=== PATIENT | female | born 1955 | race Caucasian/White ===

== ENCOUNTER 2017-04-13 18:14 | Inpatient (IN) | payer OTHER ==
--- NOTE | ~2017-04-13 | DS ---
Discharge Summary [facility] [address] [place]. [address] NAME: ORESTES MARTIN : 59 STATUS : DIS IN PAT#: [id number] AGE: 61 ADM/REG DATE : 04/13/17 MR#: [id number] REPORT SERV DATE: 04/17/17 DICTATED BY: CIERRA PEARSON DATE: 04/16/17 REPORT STATUS : Draft TRANSCRIBED BY: MODL DATE: 04/16/17 ADMISSION DATE: 04/13/2017 DISCHARGE DATE: 04/16/2017 FINAL HOSPITAL DIAGNOSES: 1. Chest pain, weakness and presyncope, resolved. Negative CV evaluation. 2. Acute kidney injury, resolved with holding her nephrotoxic agents. 3. Diabetes mellitus. 4. Leukocytosis. 5. Hypertension. CONSULTATIONS: Cardiology [facility]. PROCEDURES: 1. Echocardiogram done on 04/14, showing normal LV size and systolic function. EF of 55%. No wall motion abnormalities. Mild concentric LVH. Mild diastolic dysfunction. Mild left atrial enlargement. Aortic valve sclerosis without stenosis. When compared to 02/2016, no significant change noted. 2. Nuclear stress test done on 04/14, showing EF of 53%. No ischemia. Low-risk vasodilator stress test. CURRENT PHYSICAL FINDINGS AND HISTORY OF PRESENT ILLNESS: Please see initial dictated H and P by Dr. Ramirez. In brief, the patient is a 61-year-old female with above medical history, who was admitted with complaints of chest pain, presyncope, and weakness. Vital signs at the time of admission, BP was 134/69, the patient was afebrile on presentation and has been during her hospital stay, heart rates have been in the 60s to 70s. LABORATORY WORK: Initial blood gas showed a pH of 7.44. Carboxyhemoglobin was 6.9. Procalcitonin was less than 0.05. Initial sodium was slightly low at 132. Initial creatinine was 1.45 and subsequent creatinines were 1.1, 1.72, and 0.69. Initial glucose was 332. TSH was 0.4. Troponin was less than 0.02 x3. LFTs were normal. A1c was 11.1. BNP was 44.6. Initial white count was 17.1, subsequent numbers have been steadily trending down, last on 04/16 was 11.6. Urinalysis was unremarkable. Chest x-rays showed stable borderline cardiomegaly, otherwise negative. HOSPITAL COURSE: The patient was admitted for further evaluation and treatment. Nephrotoxic agents were held. Otherwise, her medications were reviewed and ordered appropriately. IV fluids were given. Sliding scale insulin coverage, serial troponins, Cardiology consult, and aspirin were initiated. The patient was seen by Cardiology the following day. Her stress test and echocardiogram were pending. Later that afternoon, she had a panic attack, which resolved with clonidine. On re-evaluation on the morning of 04/16, Cardiology signed off and felt she was stable from a cardiovascular standpoint. Her other medical problems including her asthma were back to baseline on her O2. Her blood sugars were reasonably well controlled. Her renal insufficiency had resolved. Her vitals were stable, and she was felt stable for discharge with outpatient followup. Discharge Summary [address] [place]. [address] NAME: ORESTES MARTIN : 59 STATUS : DIS IN PAT#: [id number] AGE: 61 ADM/REG DATE : 04/13/17 MR#: [id number] REPORT SERV DATE: 04/17/17 DICTATED BY: CIERRA PEARSON DATE: 04/16/17 REPORT STATUS : Draft TRANSCRIBED BY: MITA DATE: 04/16/17 MEDICATIONS: Norvasc 5 one per day; aspirin 81 one per day; Lipitor 40; B12, 1000 q.14 days and 500 daily; Flexeril 10 t.i.d.; vitamin D 5000; Prozac 20; Neurontin 300; Toujeo 35 at bedtime; Apresoline 50 b.i.d.; Humalog 50/50, 35 units in the morning; hydrochlorothiazide 25; Percocet 10/325 q.i.d.; Breo Ellipta, Incruse Ellipta, and ProAir p.r.n. At this point, she will not restart her Mobic or Zestril. She will follow up with her PCP in one to two weeks for discussion on restarting her Mobic and Zestril and following her renal function if necessary. At the current time, her blood pressure is fine. She is still attempting to get into pain management for prescribing of her anxiolytics and controlled substances. No prescriptions were given on her discharge today. DICTATED BY: Cierra Pearson M.D. [facility]/MODL Cierra Pearson M.D. / [id number] CC: Neal Snell DO
--- NOTE | ~2017-04-13 | CN ---
Consultation Report [facility] [address] [place]. [address] NAME: ORESTES MARTIN : 59 STATUS : ADM Ingrid PAT#: [id number] AGE: 61 ADM/REG DATE : 04/13/17 MR#: [id number] REPORT SERV DATE: 04/14/17 DICTATED BY: TA GILES DATE: 04/14/17 REPORT STATUS : Draft TRANSCRIBED BY: MODL DATE: 04/14/17 DATE OF CONSULTATION: REASON FOR CONSULTATION: Mrs. Orestes Martin is a 61-year-old female, who enters through the emergency room with chest discomfort. CVD PHYSICIAN: Ta Giles M.D. PRIMARY CARE PHYSICIAN: None. HISTORY OF PRESENT ILLNESS: Mrs. Orestes Martin has been under great deal of stress at home and developed chest discomfort. It is similar to the discomfort she has had in the past. She has also been feeling weak and somewhat dizzy. Previous workups have been included a cardiac catheterization, 04/04, which showed diffuse nonobstructive coronary artery disease. REVIEW OF SYSTEMS: Positive for recurrent chest discomfort, usually associated with lot of mental stress. No significant exertional component is found. PAST MEDICAL HISTORY: 1. Coronary artery disease, diffuse, nonobstructive on cardiac catheterization, 04/04. 2. COPD, on home O2, secondary to cigarette smoking. 3. Diabetes mellitus type 1, insulin dependent. 4. Long history of hypertension with normal ejection fraction and no LVH on echocardiogram, 03/04. 5. Hyperlipidemia, on atorvastatin. 6. Irritable bowel syndrome. 7. History of TIA with negative echocardiogram. SOCIAL HISTORY: She continues to smoke. She does not drink. FAMILY HISTORY: Significant for her maternal grandfather with coronary artery disease. Paternal uncle with myocardial infarction. Mother with coronary artery disease. PHYSICAL EXAMINATION: VITAL SIGNS: Blood pressure is 113/58, pulse 62. She is afebrile. GENERAL: Resting comfortably. Nutritional status appears adequate. EYES: PERRLA. LUNGS: No labored use of accessory muscles. Without rales or wheezes. COR: PMI is not displaced. No thrills or heaves. NL S1 and S2. No S3, murmur, click, or rub. PULSES: Carotids without bruits. ABD: +BS, nontender. EXT: No cyanosis, clubbing, or edema. SKIN: No petechiae. Consultation Report [facility] [address] [place]. [address] NAME: ORESTES MARTIN : 59 STATUS : ADM Ingrid PAT#: [id number] AGE: 61 ADM/REG DATE : 04/13/17 MR#: [id number] REPORT SERV DATE: 04/14/17 DICTATED BY: TA GILES DATE: 04/14/17 REPORT STATUS : Draft TRANSCRIBED BY: MITA DATE: 04/14/17 NEURO: Alert and oriented. Does not appear anxious or depressed. LABORATORY EVALUATION: Admission creatinine was 1.45 and this has improved to 1.11. White count was also elevated at 17 and this has improved to 15. Troponins remain negative. BNP is less than 100. ASSESSMENT: At this time, echocardiogram and stress test are pending. Somewhat atypical presentation for anginal chest pain. We will continue her on the vasodilator as vasospasm is a significant consideration. PATIENCE/MITA Ta Giles M.D. / [id number] CC: Storm Garcia MD
--- NOTE | ~2017-04-13 | HP ---
History And Physical [facility] [address] [place]. [address] NAME: ORESTES MARTIN : 59 STATUS : ADM Ingrid PAT#: [id number] AGE: 61 ADM/REG DATE : 04/13/17 MR#: [id number] REPORT SERV DATE: 04/14/17 DICTATED BY: GLENROY FRANCOIS DATE: 04/13/17 REPORT STATUS : Draft TRANSCRIBED BY: MODL DATE: 04/13/17 DATE OF ADMISSION: 04/13/2017 POINT OF ENTRY: [facility] Emergency Department. CHIEF COMPLAINT: Chest pain, weakness, and presyncope. HISTORY OF PRESENT ILLNESS: Ms. Martin is a 61-year-old female with history of COPD, hypertension, hyperlipidemia, chronic pain on chronic narcotics, and nonobstructive coronary artery disease, who presents to the emergency department today with reports of sharp, stabby epigastric chest pain as well as weakness and feeling as if she is going to pass out. The patient states that today every time she exerted herself, she felt that she was going to pass out. She felt weak, lightheaded, and things became very bright in her vision. In that setting, she also developed some sharp, stabby chest pain located in the lower substernal and upper epigastric region. She states that radiated toward her back, but denied any radiation to the left arm, neck, or jaw. The patient denies any recent fevers, night sweats, chills, shortness of breath, cough, sputum production, abdominal pain, nausea, vomiting, diarrhea, constipation, dysuria, lower extremity edema, melena, hematochezia, or hemoptysis. Initial evaluation in the emergency department notable for EKG and initial set of cardiac enzymes that was nonischemic. Labs notable for evidence of dehydration. A BUN of 30, creatinine 1.45, the glucose of 332 with a white count of 17,100. Given her elevated white count, she was not a CPOU candidate therefore, she was admitted to the Hospitalist Service. Of note, the patient was admitted to the Hospitalist Service on 03/2016 for chest pain complaints and had a mildly abnormal stress test and then underwent cardiac catheterization, which showed diffuse nonobstructive coronary artery disease. Medical management was recommended at that time. COMPREHENSIVE REVIEW OF SYSTEM: Otherwise negative unless listed in history of present illness. PREVIOUS MEDICAL HISTORY: 1. COPD on 2 L nasal cannula. 2. Chronic hypoxic respiratory failure. 3. Hypertension. 4. Hyperlipidemia. 5. Chronic pain syndrome. 6. Nonobstructive coronary artery disease. 7. Chronic leukocytosis, baseline white count approximately 11 to 14. 8. Uncontrolled insulin-dependent DM, type 2. Hemoglobin A1c of 12.4. 9. IBS. 10.History of prior cerebrovascular accident. History And Physical [address] [address] NAME: ORESTES MARTIN : 59 STATUS : ADM Ingrid PAT#: [id number] AGE: 61 ADM/REG DATE : 04/13/17 MR#: [id number] REPORT SERV DATE: 04/14/17 DICTATED BY: GLENROY FRANCOIS DATE: 04/13/17 REPORT STATUS : Draft TRANSCRIBED BY: MITA DATE: 04/13/17 11.Anxiety. 12.Depression. SURGICAL HISTORY: 1. Appendectomy. 2. Cholecystectomy. 3. Abdominal hysterectomy. 4. Knee surgery. 5. Left foot surgery. ALLERGIES: BANANAS. HOME MEDICATIONS: 1. Albuterol two puffs inhalation b.i.d. p.r.n. 2. Norvasc 5 mg daily. 3. Atorvastatin 40 mg at bedtime. 4. Vitamin D 5000 units daily. 5. Vitamin B12 at 1000 mcg every two weeks. 6. Vitamin B12 at 100 mcg daily. 7. Flexeril 10 mg t.i.d. 8. Prozac 20 mg daily. 9. Breo Ellipta one puff inhalation daily. 10.Gabapentin 300 mg t.i.d. 11.Hydralazine 50 mg b.i.d. 12.Hydrochlorothiazide 25 mg daily. 13.Toujeo 35 units at bedtime. 14.Lisinopril 40 mg daily. 15.Meloxicam 15 mg daily. 16.Percocet 10-325 one tablet q.i.d. p.r.n. 17.Incruse Ellipta one puff inhalation at bedtime. 18.Humalog 50/50 at 35 units q.a.m. SOCIAL HISTORY: She continues to smoke about a pack per day. Denies any alcohol or illicits. FAMILY MEDICAL HISTORY: Mother and father both have coronary artery disease, and family history of stroke. LABS AND IMAGIN. White count of 17.1, hemoglobin 12.7, hematocrit 37.5, platelets 291, INR 1.0. 2. Sodium is 132, potassium 4.2, chloride 95, carbon dioxide 29, BUN 30, creatinine 1.45, glucose is 332, calcium is 9.8, magnesium 2.0. 3. Troponin less than 0.02. BNP is 44. 4. ABG: PH is 7.44, pCO2 is 40, pO2 84, bicarb is 26, saturating 96% on room air. 5. EKG per my preview shows normal sinus rhythm. No evidence of any acute ischemia or infarction. 6. Chest x-ray per my review shows no acute cardiopulmonary abnormality. History And Physical [address] [address] NAME: ORESTES MARTIN : 59 STATUS : ADM Ingrid PAT#: [id number] AGE: 61 ADM/REG DATE : 04/13/17 MR#: [id number] REPORT SERV DATE: 04/14/17 DICTATED BY: GLENROY FRANCOIS DATE: 04/13/17 REPORT STATUS : Draft TRANSCRIBED BY: MITA DATE: 04/13/17 PHYSICAL EXAMINATION: VITAL SIGNS: Temperature is 97.0 degree Fahrenheit, pulse is 71, respirations 15, saturating 94% on room air, blood pressure 134/69. GENERAL: The patient is awake, alert, in no acute distress. Resting comfortably. She is a morbidly obese, female. HEENT: Atraumatic and normocephalic. Moist mucous membranes. Pupils are equal, round, reactive to light and accommodation. Extraocular eye movements intact. No scleral icterus. NECK: No jugular venous distention. No carotid bruits. CARDIAC: Regular rate and rhythm. No murmurs, rubs, or gallops. Normal S1, S2. LUNGS: Clear to auscultation bilaterally. No wheezes, rhonchi, or crackles. ABDOMEN: Obese, soft, nontender, nondistended. Good bowel sounds. No rebound, guarding, or rigidity. EXTREMITIES: Warm and well perfused. No cyanosis, clubbing, or edema. SKIN: Warm and dry. PSYCH: Affect appropriate. NEURO: Alert and oriented x3. Cranial nerves 2 through 12 grossly intact. Speech is normal. Gait not assessed. ASSESSMENT: Ms. Martin is a 61-year-old female who presents with feelings of weakness, lightheadedness, presyncope as well as chest pain. Also incidentally, she was found to have evidence of leukocytosis, hyperglycemia, and acute kidney injury. PROBLEM LIST: 1. Chest pain. 2. Presyncope and weakness. 3. Acute kidney injury. 4. Leukocytosis. 5. Insulin-dependent diabetes mellitus, type 2 with hyperglycemia. 6. History of nonobstructive coronary artery disease. 7. Chronic obstructive pulmonary disease, on home oxygen. PLAN: 1. Chest pain. Given the patient's recent cardiac catheterization approximately 13 months ago that showed diffuse nonobstructive coronary artery disease of approximately 50% in nature and reports of chest pain. We will admit the patient to Hospitalist Service, trend out cardiac enzymes, and schedule her for a stress test in the morning. Continue aspirin. Continue her home statin, but holding her lisinopril given acute kidney injury. 2. Acute kidney injury. Holding the patient's nephrotoxic medications including Mobic, lisinopril, and hydrochlorothiazide. Provide IV fluid hydration. Checking urine lytes. 3. Insulin-dependent 2 with hyperglycemia. We will give IV fluids here as well as some subcu NovoLog to correct her hyperglycemia. Check hemoglobin A1c. cosmetology educator consultation. Continue the patient's home medications with addition of level 3 sliding scale. 4. Leukocytosis. The patient appears to have chronic leukocytosis per review of [facility], History And Physical [address] [address] NAME: ORESTES MARTIN : 59 STATUS : ADM Ingrid PAT#: [id number] AGE: 61 ADM/REG DATE : 04/13/17 MR#: [id number] REPORT SERV DATE: 04/14/17 DICTATED BY: GLENROY FRANCOIS DATE: 04/13/17 REPORT STATUS : Draft TRANSCRIBED BY: MODMayuri DATE: 04/13/17 she is afebrile. No obvious source of infection at this time, but we will check a urinalysis and a procalcitonin for completeness. 5. Hypertension. Continue the patient's home medications, but holding lisinopril and hydrochlorothiazide given [place]. 6. Presyncope and weakness. Suspect this is likely multifactorial in etiology given known hyperglycemia as well as evidence of acute kidney injury. We will provide IV fluid hydration to correct her hyperglycemia and observe for improvement. We will check orthostatic vital signs. Continue telemetry monitoring as well as cardiac enzyme rule out and continue to workup for the patient's reports of chest pain. 7. DVT prophylaxis. Lovenox subcu. CODE STATUS: The patient wished to be full code. JEOVANY/MODMayuri Glenroy Francois MD / [id number] CC: Saige Kahn
[~2017-04-13 18:14] MED LIST: *UNABLE2; ANOROELLIPTA INH; APRES50 PO; ASAB PO; B121000P IM; BACDS PO; BENTYL20 PO; BREO ELLIPTA INH; CARTIA XT180 MG/24 PO; CEFT5 PO; CELEXA20 PO; CITALOPRAM PO; COREG6 PO; DULERA 200 MCG/13 GM INH; ENDOCET1 TA3 PO; FLEX PO; GABAPENTIN PO; HUMALOG 50/50 SC; HUMALOG SC; IMOD PO; INCRUSE ELLIPTA INH; INSNOVR; LEVEMIR SC; LIBRAX PO; LIPITOR PO; LIPITOR40 PO; NEUR100; NEUR300 PO; NORCO1 TAB PO; NORV5 PO; NOVOLOG SC; PERCOCET1 TA4 PO; PRINZIDE1 TA1 PO; PROAIR HFA INH; REFRES1 OPH; SPIRIVA INH; TOUJEO SC; VALIUM10 MG PO; VITAMIN D3 PO; ZESTORETIC PO
[2017-04-13 18:47] LABS: BASOPHILS 0.4 %; BASOPHILS ABSOLUTE 0.06 10/3/uL (0.0-0.16); EOSINOPHILS ABSOLUTE 0.35 10/3/uL (0.0-0.53); HEMATOCRIT 37.5 % (36.0-48.0); HEMOGLOBIN 12.7 g/dL (12.0-16.0); IMMATURE GRANULOCYTES 0.4 %; IMMATURE GRANULOCYTES ABSOLUTE 0.07 10/3/uL (0.0-0.11); LYMPHOCYTES 19.8 %; MEAN CORPUS HGB CONC 33.9 g/dL (32.0-36.0); MEAN CORPUSCULAR HEMOGLOB 29.1 pg (26.0-34.0); MEAN PLATELET VOLUME 10.6 fL (9.2-13.0); MONOCYTES 5.1 %; MONOCYTES ABSOLUTE 0.87 10/3/uL (0.21-1.20); NEUTROPHILS 72.3 %; NEUTROPHILS ABSOLUTE 12.39 10/3/uL (2.02-8.40); PLATELET COUNT 291 10/3/uL (150-400); RED CELL COUNT 4.36 10/6/uL (4.0-5.6); WHITE BLOOD CELLS 17.1 10/3/uL (4.5-10.5)
[2017-04-13 18:49] LABS: MANUAL DIFF NO %; RBC DISTRIBUTION WIDTH 16.6 % (12.0-16.0)
[2017-04-13 18:54] LABS: PARTIAL THROMBO TIME 29.8 SEC (22.5-37.2)
[2017-04-13] MEDS ORDERED: TOUJEO SC (19:03)
[2017-04-13] MEDS ORDERED: HUMALOG SC (19:05)
[2017-04-13] MEDS ORDERED: D 5000 PO (19:05)
[2017-04-13] MEDS ORDERED: LIPITOR40 PO (19:05)
[2017-04-13] MEDS ORDERED: NEUR300 PO (19:05)
[2017-04-13] MEDS ORDERED: MIX SC (19:05)
[2017-04-13] MEDS ORDERED: FLEX PO (19:06)
[2017-04-13] MEDS ORDERED: ZESTRIL40 MG PO (19:06)
[2017-04-13] MEDS ORDERED: HCTZ25B PO (19:06)
[2017-04-13] MEDS ORDERED: PERCOCET 10/3251 TAB PO (19:06)
[2017-04-13] MEDS ORDERED: PROZAC PO (19:06)
[2017-04-13] MEDS ORDERED: MOBIC15 MG PO (19:07)
[2017-04-13] MEDS ORDERED: B121000P IM (19:07)
[2017-04-13] MEDS ORDERED: NORV5 PO (19:07)
[2017-04-13] MEDS ORDERED: B12250T PO (19:08)
[2017-04-13] MEDS ORDERED: APRES50 PO (19:08)
[2017-04-13] MEDS ORDERED: PROAIR HFA INH (19:09)
[2017-04-13] MEDS ORDERED: BREO ELLIPTA 21 EACH INH (19:09)
[2017-04-13] MEDS ORDERED: INCRUSE ELLI62.5 MCG INH (19:09)
[2017-04-13 19:10] LABS: BUN (BLOOD UREA NITROGEN) 30 MG/DL (6-23); CALCIUM, SERUM 9.8 MG/DL (8.5-10.4); CHEST PAIN PROFILE TAT 0 Hrs 27 Mins; CHLORIDE, SERUM 95 MMOL/L (96-112); CO2 (CARBON DIOXIDE) 29 MMOL/L (24-34); CREATININE 1.45 MG/DL (0.55-1.02); GFR AFRICAN AMERICAN 46 ML/MIN (>=60); GFR NON AFRICAN AMERICAN 39 ML/MIN (>=60); GLUCOSE, SERUM 332 MG/DL (60-99); POTASSIUM, SERUM 4.2 MMOL/L (3.5-5.3); SODIUM, SERUM 132 MMOL/L (135-148); TROPONIN I <0.02 NG/ML (<0.05)
[2017-04-13 23:21] LABS: ALLENS TEST Pos; BE (BASE EXCESS) 2.3 MEQ/L (0 +/- 2.5); CARBOXYHEMOGLOBIN 6.9 % (0-3); HCO3 (ACTUAL BICARBONATE) 26.5 MEQ/L (23-27); HEMOBLOGIN CONTENT 12.8 G/DL (12-16); INSTRUMENT SERIAL # 8087; METHEMOGLOBIN 0.2 % (0-3); O2 CONTENT 16.1 VOL% (18-24); OPERATOR ID 33449; PCO2 (CO2 TENSION) 40 MMHG (35-45); PO2 (O2 TENSION) 84 MMHG (79-93); SAMPLE Arterial; pH 7.44 (7.37-7.43)
[2017-04-13 23:35] LABS: BASOPHILS 0.3 %; BASOPHILS ABSOLUTE 0.05 10/3/uL (0.0-0.16); EOSINOPHILS 2.8 %; EOSINOPHILS ABSOLUTE 0.42 10/3/uL (0.0-0.53); ER CBC TAT 0 Hrs 03 Mins; HEMATOCRIT 35.3 % (36.0-48.0); HEMOGLOBIN 11.8 g/dL (12.0-16.0); IMMATURE GRANULOCYTES 0.4 %; IMMATURE GRANULOCYTES ABSOLUTE 0.06 10/3/uL (0.0-0.11); LYMPHOCYTES 27.1 %; LYMPHOCYTES ABSOLUTE 4.09 10/3/uL (0.67-4.30); MEAN CORPUS HGB CONC 33.4 g/dL (32.0-36.0); MEAN CORPUSCULAR HEMOGLOB 28.6 pg (26.0-34.0); MEAN CORPUSCULAR VOLUME 85.7 fL (80-100); MONOCYTES 4.8 %; MONOCYTES ABSOLUTE 0.72 10/3/uL (0.21-1.20); NEUTROPHILS 64.6 %; NEUTROPHILS ABSOLUTE 9.76 10/3/uL (2.02-8.40); PLATELET COUNT 272 10/3/uL (150-400); RBC DISTRIBUTION WIDTH 16.5 % (12.0-16.0); RED CELL COUNT 4.12 10/6/uL (4.0-5.6); WHITE BLOOD CELLS 15.1 10/3/uL (4.5-10.5)
[2017-04-13 23:36] LABS: MANUAL DIFF NO %
[2017-04-14 00:06] LABS: ALBUMIN 3.6 G/DL (3.5-5.0); ALKALINE PHOSPHATASE 129 U/L (45-117); DIRECT BILIRUBIN < 0.1 MG/DL (0.0-0.4); INDIRECT BILIRUBIN(NOT ORDER) 0.2 MG/DL (0.1-0.9); SGOT(AST) 22 U/L (5-40); SGPT(ALT) 23 U/L (5-65); TOTAL BILIRUBIN 0.3 MG/DL (0-1.2); TOTAL PROTEIN 7.6 G/DL (6.0-8.5)
[2017-04-14 00:21] LABS: PROCALCITONIN <0.05 ng/mL (<0.5)
[2017-04-14 02:14] LABS: OSMOLALITY, URINE 272 MOSM/KG (50-1200)
[2017-04-14 02:16] LABS: SODIUM, URINE 27 MEQ/L
[2017-04-14 02:27] LABS: BASOPHILS 0.5 %; BASOPHILS ABSOLUTE 0.07 10/3/uL (0.0-0.16); EOSINOPHILS 3.1 %; EOSINOPHILS ABSOLUTE 0.46 10/3/uL (0.0-0.53); HEMATOCRIT 34.6 % (36.0-48.0); HEMOGLOBIN 11.5 g/dL (12.0-16.0); IMMATURE GRANULOCYTES 0.5 %; IMMATURE GRANULOCYTES ABSOLUTE 0.07 10/3/uL (0.0-0.11); LYMPHOCYTES 26.3 %; MEAN CORPUS HGB CONC 33.2 g/dL (32.0-36.0); MEAN CORPUSCULAR HEMOGLOB 28.5 pg (26.0-34.0); MEAN CORPUSCULAR VOLUME 85.9 fL (80-100); MEAN PLATELET VOLUME 10.2 fL (9.2-13.0); MONOCYTES 4.6 %; MONOCYTES ABSOLUTE 0.68 10/3/uL (0.21-1.20); NEUTROPHILS ABSOLUTE 9.66 10/3/uL (2.02-8.40); PLATELET COUNT 252 10/3/uL (150-400); RBC DISTRIBUTION WIDTH 16.6 % (12.0-16.0); RED CELL COUNT 4.03 10/6/uL (4.0-5.6); WHITE BLOOD CELLS 14.8 10/3/uL (4.5-10.5)
[2017-04-14 02:30] LABS: MANUAL DIFF NO %
[2017-04-14 02:45] LABS: TROPONIN I <0.02 NG/ML (<0.05)
[2017-04-14 02:48] LABS: CK-MB 1.1 NG/ML; CPK 69 U/L (0-200)
[2017-04-14 02:50] LABS: CHLORIDE, SERUM 96 MMOL/L (96-112); CO2 (CARBON DIOXIDE) 27 MMOL/L (24-34); CREATININE 1.11 MG/DL (0.55-1.02); FREE T4 1.14 NG/DL (0.76-1.46); GFR AFRICAN AMERICAN 63 ML/MIN (>=60); GFR NON AFRICAN AMERICAN 54 ML/MIN (>=60); PHOSPHORUS, SERUM 4.1 MG/DL (2.5-4.5); SODIUM, SERUM 133 MMOL/L (135-148)
[2017-04-14 03:02] LABS: BUN (BLOOD UREA NITROGEN) 26 MG/DL (6-23); CALCIUM, SERUM 8.7 MG/DL (8.5-10.4); GLUCOSE, SERUM 229 MG/DL (60-99); POTASSIUM, SERUM 3.2 MMOL/L (3.5-5.3); ULTRASENSITIVE TSH 0.419 MCIU/ML (0.358-3.740)
[2017-04-14 03:26] LABS: ASCORBIC ACID (UR NOT ORDER) NEG (NEG); BILIRUBIN, URINE NEGATIVE (NEG); KETONE, URINE NEGATIVE (NEG); LEUKOCYTE ESTERASE(NOT OR NEG (NEG); WBC (NOT ORDERED) (RFLEX) 3 (0-5)
[2017-04-14 08:15] LABS: CPK 64 U/L (0-200); TROPONIN I <0.02 NG/ML (<0.05)
[2017-04-15 05:59] LABS: ALBUMIN 2.5 G/DL (3.5-5.0); CALCIUM, SERUM 8.4 MG/DL (8.5-10.4); CHLORIDE, SERUM 99 MMOL/L (96-112); CO2 (CARBON DIOXIDE) 27 MMOL/L (24-34); CREATININE 0.72 MG/DL (0.55-1.02); GFR AFRICAN AMERICAN 106 ML/MIN (>=60); GFR NON AFRICAN AMERICAN 92 ML/MIN (>=60); SGOT(AST) 22 U/L (5-40); SGPT(ALT) 21 U/L (5-65); SODIUM, SERUM 133 MMOL/L (135-148); TOTAL BILIRUBIN 0.2 MG/DL (0-1.2)
[2017-04-15 06:00] LABS: BASOPHILS 0.6 %; BASOPHILS ABSOLUTE 0.07 10/3/uL (0.0-0.16); EOSINOPHILS 4.2 %; EOSINOPHILS ABSOLUTE 0.47 10/3/uL (0.0-0.53); HEMATOCRIT 32.1 % (36.0-48.0); HEMOGLOBIN 10.5 g/dL (12.0-16.0); IMMATURE GRANULOCYTES 0.4 %; IMMATURE GRANULOCYTES ABSOLUTE 0.04 10/3/uL (0.0-0.11); LYMPHOCYTES 25.2 %; LYMPHOCYTES ABSOLUTE 2.83 10/3/uL (0.67-4.30); MANUAL DIFF NO %; MEAN CORPUS HGB CONC 32.7 g/dL (32.0-36.0); MEAN CORPUSCULAR HEMOGLOB 28.3 pg (26.0-34.0); MEAN CORPUSCULAR VOLUME 86.5 fL (80-100); MEAN PLATELET VOLUME 10.1 fL (9.2-13.0); MONOCYTES 3.6 %; PLATELET COUNT 231 10/3/uL (150-400); RBC DISTRIBUTION WIDTH 16.4 % (12.0-16.0); RED CELL COUNT 3.71 10/6/uL (4.0-5.6); WHITE BLOOD CELLS 11.2 10/3/uL (4.5-10.5)
[2017-04-15 06:05] LABS: A/G RATIO 0.8 (0.7-1.9); ALKALINE PHOSPHATASE 105 U/L (45-117); BUN (BLOOD UREA NITROGEN) 20 MG/DL (6-23); GLUCOSE, SERUM 177 MG/DL (60-99); POTASSIUM, SERUM 3.9 MMOL/L (3.5-5.3); TOTAL PROTEIN 5.5 G/DL (6.0-8.5)
[2017-04-16 05:36] LABS: BASOPHILS 0.3 %; BASOPHILS ABSOLUTE 0.04 10/3/uL (0.0-0.16); EOSINOPHILS 2.8 %; EOSINOPHILS ABSOLUTE 0.33 10/3/uL (0.0-0.53); HEMATOCRIT 32.1 % (36.0-48.0); HEMOGLOBIN 10.5 g/dL (12.0-16.0); IMMATURE GRANULOCYTES 0.3 %; IMMATURE GRANULOCYTES ABSOLUTE 0.03 10/3/uL (0.0-0.11); LYMPHOCYTES 23.3 %; LYMPHOCYTES ABSOLUTE 2.71 10/3/uL (0.67-4.30); MANUAL DIFF NO %; MEAN CORPUS HGB CONC 32.7 g/dL (32.0-36.0); MEAN CORPUSCULAR HEMOGLOB 28.5 pg (26.0-34.0); MEAN PLATELET VOLUME 10.8 fL (9.2-13.0); MONOCYTES 4.7 %; MONOCYTES ABSOLUTE 0.54 10/3/uL (0.21-1.20); NEUTROPHILS 68.6 %; NEUTROPHILS ABSOLUTE 7.96 10/3/uL (2.02-8.40); PLATELET COUNT 225 10/3/uL (150-400); RBC DISTRIBUTION WIDTH 16.6 % (12.0-16.0); RED CELL COUNT 3.69 10/6/uL (4.0-5.6); WHITE BLOOD CELLS 11.6 10/3/uL (4.5-10.5)
[2017-04-16 05:47] LABS: BUN (BLOOD UREA NITROGEN) 17 MG/DL (6-23); CALCIUM, SERUM 9.1 MG/DL (8.5-10.4); CHLORIDE, SERUM 98 MMOL/L (96-112); CO2 (CARBON DIOXIDE) 29 MMOL/L (24-34); CREATININE 0.69 MG/DL (0.55-1.02); GFR AFRICAN AMERICAN 110 ML/MIN (>=60); GFR NON AFRICAN AMERICAN 95 ML/MIN (>=60); POTASSIUM, SERUM 4.3 MMOL/L (3.5-5.3); SODIUM, SERUM 131 MMOL/L (135-148)
[2017-04-16 05:56] LABS: GLUCOSE, SERUM 291 MG/DL (60-99)
== END 2017-04-16 16:41 | disposition home or self-care (01) | DRG 683 ==
LOC: ER 18:14 → 5NO 23:50
PROVIDERS: Emergency Medicine; Hospitalist; Internal Medicine
DX: N17.9 Acute kidney failure, unspecified (principal); E87.1 Hypo-osmolality and hyponatremia; E11.65 Type 2 diabetes mellitus with hyperglycemia; Z99.81 Dependence on supplemental oxygen; Z79.4 Long term (current) use of insulin; I25.10 Atherosclerotic heart disease of native coronary artery without angina pectoris; J44.9 Chronic obstructive pulmonary disease, unspecified; E78.5 Hyperlipidemia, unspecified; Z79.891 Long term (current) use of opiate analgesic; G89.4 Chronic pain syndrome; Z86.73 Personal history of transient ischemic attack (TIA), and cerebral infarction without residual deficits; F32.9 Major depressive disorder, single episode, unspecified; F41.9 Anxiety disorder, unspecified; Z90.49 Acquired absence of other specified parts of digestive tract; Z90.710 Acquired absence of both cervix and uterus; Z91.018 Allergy to other foods; Z79.51 Long term (current) use of inhaled steroids; F17.210 Nicotine dependence, cigarettes, uncomplicated; I10 Essential (primary) hypertension; E66.9 Obesity, unspecified; Z68.34 Body mass index [BMI] 34.0-34.9, adult
CPT/HCPCS: 36600; 71010; 78452; 80048; 80053; 80069; 80076; 81001; 82550; 82553; 82805; 82962; 83036; 83735; 83880; 83935; 84145; 84300; 84439; 84443; 84484; 85025; 85610; 85730; 93005; 93017; 93306; 94640; 96374; 99285; A9270-GY; A9502; J0153; J2405